=== PATIENT | female | born 1990 | race Caucasian/White ===

== ENCOUNTER 2019-10-24 09:20 | Outpatient (CLI) | payer OTHER, SELFPAY ==
[2019-10-25 14:24] LABS: SARS-CoV-2 RNA PCR Negative
== END 2019-10-24 09:21 | disposition home or self-care (01) ==
LOC: CHSLAB 09:24
PROVIDERS: PCP Nurse Practitioner Family; Visit Provider Nurse Practitioner Family
DX: Z20.828 Contact with and (suspected) exposure to other viral communicable diseases (principal)
CPT/HCPCS: 87635; C9803; U0003

== ENCOUNTER 2020-06-05 22:49 | Emergency (ER) | payer OTHER, SELFPAY ==
--- NOTE | ~2020-06-05 | CT_ITS ---
EXAMINATION: CT lumbar spine wo con DATE: 06/06/2020 00:05 INDICATION: Lower extremity paralysis. TECHNIQUE: Computed tomography (CT) of the lumbar spine was performed without intravenous contrast. A utomated exposure control and iterative reconstruction technique were employed. The dose-length produ ct was 1776.00 mGy-cm. COMPARISON: None FINDINGS: There are changes of cholecystectomy. There is 4 mm retrolisthesis of L5 on S1. There is 7 degrees dextrocurvature of thoracolumbar spine. There is mild chronic anterior wedging of T11 and T12 vertebral bodies. There is moderately decreased disc height at L4-L5 and mildly decreased disc heigh t at L5-S1. The following disc levels are specifically discussed: L1-L2: The disc does not extend beyond the endplate margin. There is mild bilateral facet joint osteo arthritis. There is no neural foraminal stenosis. There is no central canal stenosis. L2-L3: The disc does not extend beyond the endplate margin. There is moderate bilateral facet joint o steoarthritis. There is no neural foraminal stenosis. There is no central canal stenosis. L3-L4: The disc does not extend beyond the endplate margin. There is moderate bilateral facet joint o steoarthritis. There is no neural foraminal stenosis. There is no central canal stenosis. L4-L5: The disc is bulging. There is mild bilateral facet joint osteoarthritis. There is mild bilater al neural foraminal stenosis. There is mild central canal stenosis. L5-S1: The disc is bulging. There is mild bilateral facet joint osteoarthritis. There is moderate raji ateral neural foraminal stenosis. There is mild central canal stenosis. IMPRESSION: 1. Moderate lower lumbar spondylosis. Reviewed, dictated and finalized at location A.
[2020-06-05 23:00] VITALS: BP 137/94; PULSE 85; RESP 20; TEMP 36.1; O2SAT 96
--- NOTE | 2020-06-05 23:00 | ECG_ITS ---
Measurements Intervals [place] Rate: 67 P: 47 RI: 145 QRS: 7 QRSD: 90 T: 15 QT: 389 QTc: 413 Interpretive Statements SINUS RHYTHM DELAYED PRECORDIAL R/S TRANSITION BASELINE ARTIFACT- II, III, AVF BORDERLINE ECG Electronically Signed On 06-06-2020 7:17:33 CDT by Tree Manning D.O.
--- NOTE | 2020-06-05 23:14 | ED.GENADULT ---
HPI - General Adult General Chief complaint: Neuro Symptoms/Deficit Stated complaint: AMB Source: patient Mode of arrival: ambulatory Limitations: no limitations History of Present Illness HPI narrative: Idalia is a 29F with a PMH of obesity, HTN, severe pre-E and herniated disc at L4-L5 that was brought in by EMS for paralysis in her lower extremities. She was working at her desk when she became lightheaded. She was trying to walk to bed when she felt weird (not passing out or vertigo) and sat down. She had 5 episodes of non-bilious non-bloody vomiting then her legs went numb and paralyzed from the knee down at 2200. She has also had back pain since Wednesday. She called EMS when she could not get up. No fevers, chills, trauma, abdominal pain, diarrhea, CP or SOB. Related Data Home Medications Medication Instructions Recorded Confirmed etonogestrel 68 mg subdermal 1 implant SUBDERMAL ONCE 02/14/19 06/10/20 implant Allergies Allergy/AdvReac Type Severity Reaction Status Date / Time Penicillins Allergy Severe Anaphylaxis Verified 06/10/20 07:51 Review of Systems Constitutional: Constitutional: Reports no additional constitutional complaints Eyes: Eyes: Reports no additional eye complaints ENT: Reports system reviewed and no additional complaints, except as documented Cardiovascular: Cardiovascular: Reports no additional cardiovascular complaints Respiratory: Respiratory: Reports no additional respiratory complaints Gastrointestinal: Gastrointestinal: Reports as per HPI Genitourinary: Genitourinary: Reports no additional female genitourinary complaints Musculoskeletal: Musculoskeletal: Reports as per HPI Integumentary/Breasts: Skin/Breast: Reports system reviewed and no additional complaints, except as docu Neurologic: Reports as per HPI Psychiatric: Psychiatric: Reports no additional psychiatric complaints Endocrine: Endocrine: Reports no additional endocrine complaints Hematologic/Lymphatic: Hematologic/Lymphatic: Reports no additional hematologic/lymphatic complaints Allergic/Immunologic: Allergic/Immunologic: Reports no additional allergic/immunologic complaints [facility] Past Medical History Medical History Encounter for tuberculin skin test Foot pain Need for influenza vaccination Obesity, morbid, BMI 50 or higher White coat syndrome with hypertension Surgical History Surgical History Delivery by section H/O partial cystectomy History of cholecystectomy No history of previous surgery Family History Family History Mother Multiple sclerosis Father Heart murmur Social History Social History Smoking status: Never smoker Alcohol intake: current Substance use: never Substance use type: does not use Additional living arrangements comments: with one child Additional occupation/education comments: daycare, runs own business Gender identity (if verbalized by the patient): Female Spiritual care concerns: No Exam Const: General: no acute distress and alert Orientation/consciousness: patient oriented x3 Limitations: No altered mental status HENMT: Head: normal to inspection Other: atraumatic Eyes: Conjunctivae: conjunctivae normal Pupils: Equal, round and reactive pupils present Neck: Neck: normal visual inspection Chest: Chest palpation & inspection: normal inspection of the chest Resp: Effort & Inspection: normal respiratory effort Auscultation: clear to auscultation bilaterally Cardio: Rate: regular rate Rhythm: regular rhythm GI: Inspection: non-distended GI Palp: Yes Soft to palpation, No Tenderness to palpation present (GI) and No Guarding due to palpation present (GI) Back/Spine/Pelvis: Other: No midline tenderness
[2020-06-05 23:47] LABS: Add Urine Microscopic? YES; Appearance Urine Clear (Clear); Bilirubin Urine 1+ (Negative); Blood Urine 1+ (Negative); Color Urine Yellow (Yellow); Glucose Urine UA Negative (Negative); Ketones Urine Negative (Negative); Leukocyte Esterase Ur Trace (Negative); Nitrate Urine Negative (Negative); Protein Urine 1+ (Negative); Specific Grav Ur >= 1.030 (1.010-1.020); pH Urine 5.5 (5.0-8.0)
[2020-06-05 23:49] LABS: Pregnancy On Board Control Positive; Urine Pregnancy Test Negative
[2020-06-05 23:54] LABS: Basophils Absolute Auto 0.03 K/mm3 (0.00-0.10); Basophils Percent Auto 0.2 % (0.0-1.0); Eosinophils Absolute Auto 0.18 K/mm3 (0.02-0.50); Eosinophils Percent Auto 1.4 % (1.0-6.0); Hematocrit 42.9 % (35.0-49.0); Hemoglobin 13.8 g/dL (12.0-15.0); Immature Granulocyte Absolute 0.06 K/mm3 (0.00-0.00); Immature Granulocyte Percent A 0.5 % (0.0-0.0); Lymphocytes Absolute Auto 2.57 K/mm3 (1.10-4.50); Lymphocytes Percent Auto 19.7 % (18.0-42.0); Mean Corpuscular HGB Conc 32.2 g/dL (32.0-36.0); Mean Corpuscular Hemoglobin 28.7 pg (27.0-31.0); Mean Corpuscular Volume 89.2 fL (78.0-102.0); Mean Platelet Volume 10.3 fl (9.2-11.8); Monocytes Absolute Auto 0.41 K/mm3 (0.10-0.90); Monocytes Percent Auto 3.1 % (2.0-11.0); Neutrophils Absolute Auto 9.8 K/mm3 (1.7-7.2); Neutrophils Percent Auto 75.1 % (50.0-70.0); Platelet Count Result 287 K/mm3 (150-420); Red Blood Count 4.81 M/mm3 (4.20-5.40); White Blood Count 13.1 K/mm3 (4.8-10.8)
[2020-06-05 23:57] LABS: Bacteria Urine 4+ /hpf; Calcium Oxalate Crystals Urine Many /hpf; Mucus Urine Heavy /lpf; Squamous Epithelial Cell Urine Many /hpf (Few)
[2020-06-06 00:10] LABS: Alanine Aminotransferase 24 U/L (14-59); Albumin Level 3.6 g/dL (3.4-5.0); Alkaline Phosphatase 81 U/L (46-116); Anion Gap 10 mmol/L (8-16); Aspartate Amino Transferase 15 U/L (15-37); Bilirubin,Total 0.3 mg/dL (0.00-1.00); Blood Urea Nitrogen 15 mg/dL (7-18); Calcium 8.8 mg/dL (8.5-10.1); Carbon Dioxide 26 mmol/L (21-32); Chloride 103 mmol/L (98-108); Estimated CRCL calculation 102 ml/min; Estimated Glomerular Filt Rate 59; Glucose 162 mg/dL (70-99); Osmolality Calculated 292 mOsm/kg (285-295); Potassium 3.6 mmol/L (3.5-5.1); Sodium 139 mmol/L (136-145); Total Protein 7.7 g/dL (6.4-8.2)
--- NOTE | 2020-06-06 01:38 | PC.NURSE ---
RICHARD has contacted [facility] trauma transfer x2 and still awaiting call back from a andi Olivares Pt..
[2020-06-06 02:13] VITALS: BP 132/70; PULSE 80; RESP 20; O2SAT 100
--- NOTE | 2020-06-06 02:42 | PC.NURSE ---
Dr Conn from [facility] accepts for pt transfer to ER for further eval. Awaiting call back for report.
[2020-06-06 02:56] LABS: SARS-CoV-2 Ag Negative (Negative)
[2020-06-06 03:05] VITALS: BP 133/92; PULSE 73; RESP 20; TEMP 36.6; O2SAT 100
--- NOTE | 2020-06-06 03:38 | PC.NURSE ---
Report given to [facility] for transfer.
== END 2020-06-06 03:38 | disposition short-term general hospital (02) ==
PROVIDERS: Emergency Provider Family Medicine; PCP Nurse Practitioner Family
DX: M51.06 Intervertebral disc disorders with myelopathy, lumbar region (principal); Z20.822 Contact with and (suspected) exposure to COVID-19
CPT/HCPCS: 36415; 72131; 80053; 81001; 81025; 85025; 87426; 93005; 99285; C9803

== ENCOUNTER 2020-07-16 08:29 | Outpatient (CLI) | payer SELFPAY | END 2020-07-16 08:30 | disposition home or self-care (01) | PROVIDERS: PCP Nurse Practitioner Family; Visit Provider Nurse Practitioner Family | DX: E66.9 Obesity, unspecified (principal) | CPT/HCPCS: 99199 ==

== ENCOUNTER 2020-07-16 09:37 | Outpatient (RCR) | payer OTHER, SELFPAY ==
--- NOTE | 2020-07-16 10:59 | PTOPEVAL ---
Thank you for referring Idalia Madden to [facility].? The patient is scheduled to be seen for therapy? _3___x/week for 12 visits. Please review, sign, date and return this plan of care JENNIFER. I agree with and certify that the following plan of care is medically necessary. Referring Physician Date Admitting Provider: Attending Provider: Erma Woodward Referring Provider: *PT Outpatient Evaluation Start: 07/16/20 09:58 Freq: Status: Active Protocol: Document 07/16/20 09:58 KAI (Rec: 07/16/20 10:58 [email or web address] [id number]) Therapy Assessment Status Assessment Status Assessment Status Evaluation Evaluation Information Problem Diagnosis low back pain Onset 06/01/20 Subjective Information Pt. reports that she developed Query Text:As Reported By Patient/ back pain in May. she Family reports she underwent MRI which revealed herniated disc at L4-L5. She states that pain goes across the the low back and radiates down into the buttock on both right and left. She reports that pain is worsened with long periods of walking or standing. She reports that she can only stand for about 15 minutes due to pain. She reports she has a 5 year old at home and playing with her daughter on the floor is painful. She states that bending and lifting also will increase her pain. She reports that her goal for therapy is to decrease her pain. Prior Level of Function Activity Level (Last 3 Months) Occupation self employed Hand [employer] Activity of Daily Living Ability Independent Indoor/Home Mobility Independent Community Mobility Independent Stairs Ability Independent Functional Cognition (Planning, Shopping Independent , Taking Medications) Cooking Yes Cleaning Yes Laundry Yes Shopping Yes Driving Yes Pain Assessment Timing of Pain Assessment Timing of Pain Assessment Pre-Treatment Pain Scale Pain Scale Used Numeric (1 - 10) Self Report Pain Assessment Lower Back Reported Pain Level 1
--- NOTE | 2020-10-08 06:46 | PCPTNOTE ---
Mrs. Madden attended a total of 5 treatment sessions from 07/16/20 to 08/02/20. She has failed to return to the clinic and will be discharged from our care. Refer to pt. last Rx note for discharge status. Charly Kamara, MPT
== END 2020-08-02 09:38 | disposition home or self-care (01) ==
LOC: CHSPT 09:37
PROVIDERS: PCP Nurse Practitioner Family
DX: M54.5 Low back pain (principal)
CPT/HCPCS: 97014; 97110; 97161; 97530; G0283

== ENCOUNTER 2021-01-22 12:43 | Outpatient (CLI) | payer OTHER, SELFPAY ==
[2021-01-22 13:02] LABS: Basophils Absolute Auto 0.03 K/mm3 (0.00-0.10); Basophils Percent Auto 0.3 % (0.0-1.0); Eosinophils Absolute Auto 0.25 K/mm3 (0.02-0.50); Eosinophils Percent Auto 2.3 % (1.0-6.0); Hematocrit 39.7 % (35.0-49.0); Hemoglobin 13.9 g/dL (12.0-15.0); Immature Granulocyte Absolute 0.05 K/mm3 (0.00-0.00); Immature Granulocyte Percent A 0.5 % (0.0-0.0); Lymphocytes Absolute Auto 2.75 K/mm3 (1.10-4.50); Lymphocytes Percent Auto 24.8 % (18.0-42.0); Mean Corpuscular Hemoglobin 29.6 pg (27.0-31.0); Mean Corpuscular Volume 84.5 fL (78.0-102.0); Mean Platelet Volume 10.4 fl (9.2-11.8); Monocytes Absolute Auto 0.37 K/mm3 (0.10-0.90); Monocytes Percent Auto 3.3 % (2.0-11.0); Neutrophils Absolute Auto 7.6 K/mm3 (1.7-7.2); Neutrophils Percent Auto 68.8 % (50.0-70.0); Platelet Count Result 275 K/mm3 (150-420); Red Cell Distribution Width 13.2 % (11.6-14.4); White Blood Count 11.1 K/mm3 (4.8-10.8)
[2021-01-22 14:05] LABS: Alanine Aminotransferase 24 U/L (14-59); Albumin Level 3.7 g/dL (3.4-5.0); Alkaline Phosphatase 89 U/L (46-116); Anion Gap 12 mmol/L (8-16); Aspartate Amino Transferase 16 U/L (15-37); Bilirubin,Total 0.4 mg/dL (0.00-1.00); Blood Urea Nitrogen 13 mg/dL (7-18); Calcium 9.2 mg/dL (8.5-10.1); Carbon Dioxide 25 mmol/L (21-32); Chloride 103 mmol/L (98-108); Estimated Glomerular Filt Rate > 60; Glucose 136 mg/dL (70-99); Osmolality Calculated 292 mOsm/kg (285-295); Potassium 4.1 mmol/L (3.5-5.1); Sodium 140 mmol/L (136-145); Thyroid Stimulating Hormone 2.82 uIU/mL (0.36-3.74)
[2021-01-25 23:51] LABS: Vitamin D 25 Hydroxy 12 ng/mL (30-100)
== END 2021-01-22 12:44 | disposition home or self-care (01) ==
LOC: CHSLAB 12:45
PROVIDERS: PCP Nurse Practitioner Family; Visit Provider Nurse Practitioner Family
DX: E66.01 Morbid (severe) obesity due to excess calories (principal); I10 Essential (primary) hypertension
CPT/HCPCS: 36415; 80053; 82306; 84443; 85025

== ENCOUNTER 2021-01-23 13:17 | Outpatient (CLI) | payer OTHER, SELFPAY | END 2021-01-23 13:18 | disposition home or self-care (01) | LOC: CHSLAB 13:19 | PROVIDERS: PCP Nurse Practitioner Family; Visit Provider Nurse Practitioner Family | DX: R19.7 Diarrhea, unspecified (principal); G47.00 Insomnia, unspecified | CPT/HCPCS: 87045; 87177; 87209; 87269; 87427 ==

== ENCOUNTER 2021-02-17 11:53 | Outpatient (CLI) | payer OTHER, SELFPAY ==
[2021-02-17 12:49] LABS: Basophils Absolute Auto 0.02 K/mm3 (0.00-0.10); Basophils Percent Auto 0.2 % (0.0-1.0); Eosinophils Absolute Auto 0.34 K/mm3 (0.02-0.50); Eosinophils Percent Auto 3.3 % (1.0-6.0); Hematocrit 38.8 % (35.0-49.0); Hemoglobin 13.1 g/dL (12.0-15.0); Immature Granulocyte Absolute 0.03 K/mm3 (0.00-0.00); Immature Granulocyte Percent A 0.3 % (0.0-0.0); Lymphocytes Absolute Auto 3.41 K/mm3 (1.10-4.50); Lymphocytes Percent Auto 33.5 % (18.0-42.0); Mean Corpuscular HGB Conc 33.8 g/dL (32.0-36.0); Mean Corpuscular Hemoglobin 29.6 pg (27.0-31.0); Mean Corpuscular Volume 87.6 fL (78.0-102.0); Mean Platelet Volume 10.9 fl (9.2-11.8); Monocytes Absolute Auto 0.54 K/mm3 (0.10-0.90); Monocytes Percent Auto 5.3 % (2.0-11.0); Neutrophils Absolute Auto 5.8 K/mm3 (1.7-7.2); Neutrophils Percent Auto 57.4 % (50.0-70.0); Platelet Count Result 290 K/mm3 (150-420); Red Blood Count 4.43 M/mm3 (4.20-5.40); Red Cell Distribution Width 12.9 % (11.6-14.4); White Blood Count 10.2 K/mm3 (4.8-10.8)
== END 2021-02-17 11:54 | disposition home or self-care (01) ==
LOC: CHSLAB 11:56
PROVIDERS: PCP Nurse Practitioner Family; Visit Provider Nurse Practitioner Family
DX: D72.829 Elevated white blood cell count, unspecified (principal)
CPT/HCPCS: 36415; 85025

== ENCOUNTER 2021-05-14 07:04 | Outpatient (CLI) | payer OTHER, SELFPAY ==
--- NOTE | ~2021-05-14 | US_ITS ---
EXAMINATION: US pelvic complete w TV DATE: 05/14/2021 07:57 INDICATION: Pelvic pain. TECHNIQUE: Multiple transabdominal and transvaginal sonographic images of the pelvis were obtained. COMPARISON: None. FINDINGS: TRANSABDOMINAL ULTRASOUND: The uterus measures 9.6 x 3.2 x 3.3 cm. There is no free fluid in the pelvis. TRANSVAGINAL ULTRASOUND: The endometrial complex measures 4 mm in thickness. The right ovary measures 3.0 x 1.9 x 1.5 cm. The left ovary measures 2.3 x 1.6 x 1.8 cm. There is normal vascular flow in the ovaries. IMPRESSION: 1. Normal pelvis. Reviewed, dictated and finalized at location A. IMPRESSION: 1. Normal pelvis.
== END 2021-05-14 07:05 | disposition home or self-care (01) ==
LOC: CHSIMG 07:05
PROVIDERS: PCP Nurse Practitioner Family; Visit Provider Nurse Practitioner
DX: R10.2 Pelvic and perineal pain (principal)
CPT/HCPCS: 76830; 76856

== ENCOUNTER 2022-04-03 14:09 | Outpatient (CLI) | payer OTHER, SELFPAY ==
--- NOTE | ~2022-04-03 | XR_ITS ---
XR cervical spine 4-5V 04/03/2022 14:40 Indication: Neck pain Procedure: 4 views cervical spine Comparison: No prior studies for comparison. Findings: Straightening of cervical lordosis, likely due to muscle spasm. Vertebral body heights are maintained. No fracture or traumatic malalignment. No prevertebral soft tissue swelling. Odontoid pro cess is normal. Lung apices are normal. Impression: 1: No significant abnormality of the cervical spine. Reviewed, dictated and finalized at location B. NICAL ADMINISTRATIVE ASSISTANT Impression: 1: No significant abnormality of the cervical spine.
[2022-04-03 14:36] LABS: Hematocrit 38.5 % (35.0-49.0); Hemoglobin 13.1 g/dL (12.0-15.0); Mean Corpuscular Volume 85.4 fL (78.0-102.0); Mean Platelet Volume 10.1 fl (9.2-11.8); Platelet Count Result 310 K/mm3 (150-420); Red Blood Count 4.51 M/mm3 (4.20-5.40); White Blood Count 11.5 K/mm3 (4.8-10.8)
[2022-04-03 15:16] LABS: Alanine Aminotransferase 21 U/L (14-59); Albumin Level 3.6 g/dL (3.4-5.0); Alkaline Phosphatase 86 U/L (46-116); Anion Gap 12 mmol/L (8-16); Aspartate Amino Transferase 26 U/L (15-37); Bilirubin,Total 0.3 mg/dL (0.00-1.00); Blood Urea Nitrogen 13 mg/dL (7-18); Calcium 9.3 mg/dL (8.5-10.1); Carbon Dioxide 26 mmol/L (21-32); Chloride 102 mmol/L (98-108); Cholesterol 180 mg/dL (0-200); Estimated Glomerular Filt Rate > 60; Glucose 107 mg/dL (70-99); HDL Direct 37 mg/dL (40-60); LDL Cholesterol Calculated 109 mg/dL (<130); Osmolality Calculated 290 mOsm/kg (285-295); Potassium 3.8 mmol/L (3.5-5.1); Sodium 140 mmol/L (136-145); Thyroid Stimulating Hormone 2.84 uIU/mL (0.36-3.74); Total Protein 7.9 g/dL (6.4-8.2); Triglycerides 171 mg/dL (0-150)
== END 2022-04-03 14:10 | disposition home or self-care (01) ==
LOC: CHSLAB 14:11
PROVIDERS: PCP Nurse Practitioner Family; Visit Provider Nurse Practitioner Family
DX: R73.03 Prediabetes (principal); M54.2 Cervicalgia; E66.01 Morbid (severe) obesity due to excess calories
CPT/HCPCS: 36415; 72050; 80053; 80061; 84443; 85027

== ENCOUNTER 2022-04-13 07:58 | Outpatient (RCR) | payer OTHER, SELFPAY ==
--- NOTE | 2022-04-13 09:05 | PTOPEVAL1 ---
Assessment and note entered by Karime Carrasco DPT Evaluation Information Assessment Status Evaluation Diagnosis cervicalgia Onset Subjective Information Patient reports she has had neck pain for the last month. She reports the only instance she can remember when pain started is when she was carrying a duffle bag across her body. Patient has difficulty sleeping and looking over her shoulder to drive. 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 She denies and radiating pain. x-rays were negative. Reported Pain Level Pain Score 3: Self Report Assessment PT Clinical Summary Patient is a 31 year old female who presents to PT with cervical pain. Patient demonstrates limited L cervical rotation with pain and hypomobility of C2-4 cervical vertebra impairing her ability to look over her L shoulder when driving and abiltiy to sleep without disturbance. She would benefit from skilled PT to address impairments and return to PLOF. Plan of Care Interventions Electrical Stimulation,Hot Pack/Cold Pack,Manual Therapy,Mechanical Traction,Neuro Re-education, Patient/Caregiver Educati,Therapeutic Activities, Therapeutic Exercise,Self-Care/Home Management PT Services Indicated Yes Treatment Frequency and 2x weekly for 12 visits Duration These treatments will address the objective and functional deficits as defined above. The patient will be advanced safely and appropriately in order for the patient to progress towards his/her prior level of function. Additional exercises will be introduced and as well as a comprehensive home exercise program upon discharge, if needed, ?to ensure carryover of functional gains achieved in the clinic. This treatment plan has been reviewed and agreement upon by the patient.
--- NOTE | 2022-06-02 11:18 | PTOPDC ---
Assessment and note entered by Karime Carrasco DPT Evaluation Information Assessment Status Re-evaluation Diagnosis cervicalgia Onset Subjective Information Patient reports she has been able to sleep with no increase in pain. She also reports she is able to check her blind spot when driving with no inrease in pain. She has been getting head aches but is contributing that to BP issues. Reported Pain Level Pain Score 0: Self Report Assessment PT Clinical Summary Patient made significant progress in skilled PT and met all goals. She has improved cervical ROM, improved UE strength and reports ability to sleep and drive with no increase in pain. Patient reports independence with HEP and will be discharged to independent HEP at this time. Plan of Care PT Services Indicated No
== END 2022-06-02 14:44 | disposition home or self-care (01) ==
LOC: CHSPT 07:58
PROVIDERS: Visit Provider Nurse Practitioner Family
DX: M54.2 Cervicalgia (principal)
CPT/HCPCS: 97014; 97110; 97140; 97161; G0283

== ENCOUNTER 2022-05-26 11:53 | Outpatient (CLI) | payer OTHER, SELFPAY ==
[2022-05-26 12:12] LABS: Appearance Urine Clear (Clear); Bilirubin Urine Negative (Negative); Blood Urine 1+ (Negative); Color Urine Yellow (Yellow); Glucose Urine UA Negative (Negative); Ketones Urine Negative (Negative); Leukocyte Esterase Ur Negative (Negative); Nitrate Urine Negative (Negative); Protein Urine Negative (Negative); Specific Grav Ur >= 1.030 (1.010-1.020); Urobilinogen Urine 0.2 mg/dL (0.2-1.0)
[2022-05-26 12:19] LABS: Add Urine Microscopic? YES
[2022-05-26 12:20] LABS: Bacteria Urine 1+ /hpf; Mucus Urine Few /lpf; Squamous Epithelial Cell Urine Few /hpf (Few); WBC Urine None seen /hpf (0-3)
[2022-05-28 15:50] LABS: TB Skin Test Erythema 0 mm; TB Skin Test Induration 0 mm (0-10); TB Skin Test Interpretation Negative (Negative); TB Skin Test Site Left Arm
== END 2022-05-26 11:54 | disposition home or self-care (01) ==
LOC: CHSLAB 11:55
PROVIDERS: PCP Nurse Practitioner Family; Visit Provider Nurse Practitioner Family
DX: R39.9 Unspecified symptoms and signs involving the genitourinary system (principal); Z02.1 Encounter for pre-employment examination
CPT/HCPCS: 36415; 81001; 86580

== ENCOUNTER 2022-07-03 07:13 | Outpatient (CLI) | payer OTHER, SELFPAY ==
[2022-07-03 07:44] LABS: Hemoglobin A1C 6.4 % (<5.7)
[2022-07-03 08:24] LABS: Cholesterol 178 mg/dL (0-200); HDL Direct 39 mg/dL (40-60); LDL Cholesterol Calculated 103 mg/dL (<130); Triglycerides 180 mg/dL (0-150)
[2022-07-08 20:06] LABS: Vitamin D 25 Hydroxy 12 ng/mL (30-100)
== END 2022-07-03 07:14 | disposition home or self-care (01) ==
LOC: CHSLAB 07:15
PROVIDERS: PCP Nurse Practitioner Family; Visit Provider Nurse Practitioner Family
DX: E55.9 Vitamin D deficiency, unspecified (principal); E66.01 Morbid (severe) obesity due to excess calories; R73.03 Prediabetes
CPT/HCPCS: 36415; 80061; 82306; 83036

== ENCOUNTER 2022-09-03 09:44 | Outpatient (CLI) | payer OTHER, SELFPAY ==
[2022-09-07 19:26] LABS: Vitamin D 25 Hydroxy 20 ng/mL (30-100)
== END 2022-09-03 09:45 | disposition home or self-care (01) ==
LOC: CHSLAB 09:46
PROVIDERS: PCP Nurse Practitioner Family; Visit Provider Nurse Practitioner Family
DX: E55.9 Vitamin D deficiency, unspecified (principal)
CPT/HCPCS: 36415; 82306

== ENCOUNTER 2022-09-15 10:06 | Outpatient (CLI) | payer OTHER, SELFPAY ==
[2022-09-15 10:25] LABS: Creatinine Urine 258.81 mg/dL (40-278); MALB Creatinine Ratio 38.4 mg/g (0-30); Microalbumin Urine Random 99.6 mg/L
[2022-09-15 10:45] LABS: Hemoglobin A1C 5.7 % (<5.7)
[2022-09-15 10:48] LABS: Albumin Level 3.6 g/dL (3.4-5.0); Anion Gap 12 mmol/L (8-16); Blood Urea Nitrogen 11 mg/dL (7-18); Calcium 9.3 mg/dL (8.5-10.1); Carbon Dioxide 26 mmol/L (21-32); Chloride 103 mmol/L (98-108); Estimated Glomerular Filt Rate > 60; Glucose 137 mg/dL (70-99); Osmolality Calculated 293 mOsm/kg (285-295); Phosphorus 3.7 mg/dL (2.6-4.7); Potassium 4.1 mmol/L (3.5-5.1); Sodium 141 mmol/L (136-145)
== END 2022-09-15 10:07 | disposition home or self-care (01) ==
LOC: CHSLAB 10:08
PROVIDERS: PCP Nurse Practitioner Family; Visit Provider Nurse Practitioner Family
DX: E11.9 Type 2 diabetes mellitus without complications (principal); R35.0 Frequency of micturition
CPT/HCPCS: 36415; 80069; 82043; 83036

== ENCOUNTER 2022-09-18 12:10 | Outpatient (CLI) | payer OTHER, SELFPAY ==
[2022-09-18 12:48] LABS: Appearance Urine Clear (Clear); Bilirubin Urine Negative (Negative); Blood Urine Negative (Negative); Color Urine Light Yellow (Yellow); Glucose Urine UA Negative (Negative); Ketones Urine Negative (Negative); Leukocyte Esterase Ur Negative (Negative); Nitrate Urine Negative (Negative); Protein Urine Negative (Negative); Specific Grav Ur >= 1.030 (1.010-1.020); Urobilinogen Urine 0.2 mg/dL (0.2-1.0)
[2022-09-18 12:50] LABS: Add Urine Microscopic? NO
== END 2022-09-18 12:11 | disposition home or self-care (01) ==
PROVIDERS: PCP Nurse Practitioner Family; Visit Provider Nurse Practitioner Family
DX: R35.0 Frequency of micturition (principal); R82.90 Unspecified abnormal findings in urine
CPT/HCPCS: 81003; 87086; 87088

== ENCOUNTER 2023-01-05 15:32 | Outpatient (CLI) | payer OTHER, SELFPAY ==
--- NOTE | ~2023-01-05 | XR_ITS ---
XR hip BI wo pelvis 01/05/2023 16:04 Indication: Hip pain for 10 days Procedure: 2 views each hip Comparison: 07/27/2014 Findings: Stable mild bilateral symmetric osteoarthritis of the hips. Pelvic rings are intact. No fra cture or traumatic malalignment. Sacral foramen are symmetric. Impression: 1: Mild bilateral symmetric osteoarthritis of the hips. Reviewed, dictated and finalized at location L. ROLS DESIGN ENGINEER Impression: 1: Mild bilateral symmetric osteoarthritis of the hips.
[2023-01-05 16:25] LABS: Alanine Aminotransferase 39 U/L (14-59); Albumin Level 3.4 g/dL (3.4-5.0); Alkaline Phosphatase 73 U/L (46-116); Anion Gap 5 mmol/L (8-16); Aspartate Amino Transferase 25 U/L (15-37); Bilirubin,Total 0.5 mg/dL (0.00-1.00); Blood Urea Nitrogen 9 mg/dL (7-18); Calcium 9.3 mg/dL (8.5-10.1); Carbon Dioxide 33 mmol/L (21-32); Chloride 102 mmol/L (98-108); Cholesterol 160 mg/dL (0-200); Estimated Glomerular Filt Rate > 60; Glucose 86 mg/dL (70-99); HDL Direct 35 mg/dL (40-60); LDL Cholesterol Calculated 100 mg/dL (<130); Osmolality Calculated 287 mOsm/kg (285-295); Sodium 140 mmol/L (136-145); Total Protein 7.8 g/dL (6.4-8.2); Triglycerides 123 mg/dL (0-150)
[2023-01-05 16:28] LABS: Hemoglobin A1C 5.7 % (<5.7)
== END 2023-01-05 15:33 | disposition home or self-care (01) ==
PROVIDERS: PCP Nurse Practitioner Family; Visit Provider Nurse Practitioner Family
DX: E66.01 Morbid (severe) obesity due to excess calories (principal); E11.9 Type 2 diabetes mellitus without complications; M25.552 Pain in left hip; M25.551 Pain in right hip; M16.0 Bilateral primary osteoarthritis of hip
CPT/HCPCS: 36415; 73521; 80053; 80061; 83036

== ENCOUNTER 2023-05-04 11:32 | Outpatient (CLI) | payer OTHER, SELFPAY ==
--- NOTE | 2023-05-04 12:20 | ECG_ITS ---
Measurements Intervals [place] Rate: 58 P: 69 CO: 153 QRS: 64 QRSD: 92 T: 60 QT: 423 QTc: 419 Interpretive Statements SINUS BRADYCARDIA DELAYED PRECORDIAL R/S TRANSITION BORDERLINE ECG COMPARED TO ECG 06/05/2020 23:09:06 SINUS BRADYCARDIA NOW PRESENT Electronically Signed On 05-04-2023 16:10:45 CDT by Tree Manning D.O.
[2023-05-04 12:24] LABS: Basophils Absolute Auto 0.02 K/mm3 (0.00-0.10); Basophils Percent Auto 0.2 % (0.0-1.0); Eosinophils Absolute Auto 0.15 K/mm3 (0.02-0.50); Eosinophils Percent Auto 1.6 % (1.0-6.0); Hematocrit 40.9 % (35.0-49.0); Hemoglobin 13.7 g/dL (12.0-15.0); Immature Granulocyte Absolute 0.04 K/mm3 (0.00-0.00); Immature Granulocyte Percent A 0.4 % (0.0-0.0); Lymphocytes Absolute Auto 2.84 K/mm3 (1.10-4.50); Lymphocytes Percent Auto 30.8 % (18.0-42.0); Mean Corpuscular HGB Conc 33.5 g/dL (32-36); Mean Corpuscular Hemoglobin 28.8 pg (27.0-31.0); Mean Corpuscular Volume 85.9 fL (78.0-102.0); Mean Platelet Volume 10.2 fl (9.2-11.8); Monocytes Absolute Auto 0.32 K/mm3 (0.10-0.90); Monocytes Percent Auto 3.5 % (2.0-11.0); Neutrophils Absolute Auto 5.86 K/mm3 (1.70-7.20); Neutrophils Percent Auto 63.5 % (50.0-70.0); Platelet Count Result 260 K/mm3 (150-420); Red Blood Count 4.76 M/mm3 (4.20-5.40); Red Cell Distribution Width 13.1 % (11.6-14.4); White Blood Count 9.2 K/mm3 (4.8-10.8)
[2023-05-04 12:44] LABS: Alanine Aminotransferase 21 U/L (14-59); Albumin Level 3.5 g/dL (3.4-5.0); Alkaline Phosphatase 71 U/L (46-116); Anion Gap 11 mmol/L (4-12); Aspartate Amino Transferase 16 U/L (15-37); Bilirubin,Total 0.4 mg/dL (0.00-1.00); Blood Urea Nitrogen 6 mg/dL (7-18); Calcium 9.4 mg/dL (8.5-10.1); Carbon Dioxide 28 mmol/L (21-32); Chloride 101 mmol/L (98-108); Cholesterol 181 mg/dL (0-200); Estimated Glomerular Filt Rate > 60; Glucose 87 mg/dL (70-99); HDL Direct 47 mg/dL (40-60); Hemoglobin A1C 5.1 % (<5.7); LDL Cholesterol Calculated 108 mg/dL (<130); Osmolality Calculated 286 mOsm/kg (285-295); Potassium 3.5 mmol/L (3.5-5.1); Sodium 140 mmol/L (136-145); Total Protein 8.5 g/dL (6.4-8.2); Triglycerides 130 mg/dL (0-150)
[2023-05-06 22:12] LABS: Vitamin D 25 Hydroxy 19 ng/mL (30-100)
== END 2023-05-04 11:33 | disposition home or self-care (01) ==
LOC: CHSLAB 11:35
PROVIDERS: PCP Nurse Practitioner Family; Visit Provider Nurse Practitioner Family
DX: Z00.00 Encounter for general adult medical examination without abnormal findings (principal); E55.9 Vitamin D deficiency, unspecified; E11.9 Type 2 diabetes mellitus without complications; R07.89 Other chest pain; R00.1 Bradycardia, unspecified
CPT/HCPCS: 36415; 80053; 80061; 82306; 83036; 84484; 85025; 93005

== ENCOUNTER 2023-07-08 12:59 | Outpatient (CLI) | payer OTHER, SELFPAY ==
[2023-07-08 13:52] LABS: Alanine Aminotransferase 23 U/L (14-59); Albumin Level 3.3 g/dL (3.4-5.0); Alkaline Phosphatase 70 U/L (46-116); Anion Gap 8 mmol/L (4-12); Aspartate Amino Transferase 28 U/L (15-37); Bilirubin,Total 0.5 mg/dL (0.00-1.00); Blood Urea Nitrogen 11 mg/dL (7-18); Calcium 8.7 mg/dL (8.5-10.1); Carbon Dioxide 30 mmol/L (21-32); Chloride 102 mmol/L (98-108); Estimated Glomerular Filt Rate > 60; Glucose 96 mg/dL (70-99); Osmolality Calculated 289 mOsm/kg (285-295); Sodium 140 mmol/L (136-145); Total Protein 7.6 g/dL (6.4-8.2)
[2023-07-08 13:53] LABS: Potassium 4.7 mmol/L (3.5-5.1)
[2023-07-10 03:04] LABS: Vitamin D 25 Hydroxy 30 ng/mL (30-100)
== END 2023-07-08 13:00 | disposition home or self-care (01) ==
LOC: CHSLAB 13:00
PROVIDERS: PCP Nurse Practitioner Family; Visit Provider Nurse Practitioner Family
DX: E55.9 Vitamin D deficiency, unspecified (principal); I10 Essential (primary) hypertension
CPT/HCPCS: 36415; 80053; 82306

== ENCOUNTER 2023-09-02 13:45 | Outpatient (CLI) | payer OTHER, SELFPAY ==
[2023-09-02 14:02] LABS: Basophils Absolute Auto 0.04 K/mm3 (0.00-0.10); Basophils Percent Auto 0.4 % (0.0-1.0); Eosinophils Absolute Auto 0.17 K/mm3 (0.02-0.50); Eosinophils Percent Auto 1.9 % (1.0-6.0); Hematocrit 36.6 % (35.0-49.0); Hemoglobin 12.7 g/dL (12.0-15.0); Immature Granulocyte Absolute 0.03 K/mm3 (0.00-0.00); Immature Granulocyte Percent A 0.3 % (0.0-0.0); Lymphocytes Absolute Auto 3.29 K/mm3 (1.10-4.50); Lymphocytes Percent Auto 35.9 % (18.0-42.0); Mean Corpuscular HGB Conc 34.7 g/dL (32-36); Mean Corpuscular Hemoglobin 29.7 pg (27.0-31.0); Mean Corpuscular Volume 85.5 fL (78.0-102.0); Mean Platelet Volume 10.5 fl (9.2-11.8); Monocytes Absolute Auto 0.36 K/mm3 (0.10-0.90); Monocytes Percent Auto 3.9 % (2.0-11.0); Neutrophils Absolute Auto 5.27 K/mm3 (1.70-7.20); Neutrophils Percent Auto 57.6 % (50.0-70.0); Platelet Count Result 279 K/mm3 (150-420); Red Blood Count 4.28 M/mm3 (4.20-5.40); Red Cell Distribution Width 12.4 % (11.6-14.4); White Blood Count 9.2 K/mm3 (4.8-10.8)
[2023-09-02 14:38] LABS: Hemoglobin A1C 5.6 % (<5.7)
[2023-09-02 14:52] LABS: Alanine Aminotransferase 33 U/L (14-59); Albumin Level 3.5 g/dL (3.4-5.0); Alkaline Phosphatase 91 U/L (46-116); Anion Gap 8 mmol/L (4-12); Aspartate Amino Transferase 14 U/L (15-37); Bilirubin,Total 0.6 mg/dL (0.00-1.00); Blood Urea Nitrogen 8 mg/dL (7-18); Calcium 8.8 mg/dL (8.5-10.1); Carbon Dioxide 28 mmol/L (21-32); Chloride 104 mmol/L (98-108); Cholesterol 145 mg/dL (0-200); Estimated Glomerular Filt Rate > 60; Glucose 97 mg/dL (70-99); HDL Direct 42 mg/dL (40-60); LDL Cholesterol Calculated 77 mg/dL (<130); Osmolality Calculated 288 mOsm/kg (285-295); Sodium 140 mmol/L (136-145); Thyroid Stimulating Hormone 1.72 uIU/mL (0.36-3.74); Total Protein 7.2 g/dL (6.4-8.2); Triglycerides 130 mg/dL (0-150)
== END 2023-09-02 13:46 | disposition home or self-care (01) ==
LOC: CHSLAB 13:46
PROVIDERS: PCP Nurse Practitioner Family; Visit Provider Nurse Practitioner Family
DX: Z00.00 Encounter for general adult medical examination without abnormal findings (principal)
CPT/HCPCS: 36415; 80053; 80061; 83036; 84443; 85025

== ENCOUNTER 2023-12-11 22:47 | Emergency (ER) | payer OTHER, SELFPAY ==
--- NOTE | ~2023-12-11 | XR_ITS ---
EXAMINATION: XR ankle RT min 3V, XR foot RT min 3V DATE: 12/11/2023 23:07 INDICATION: Lateral right foot and ankle pain post fall TECHNIQUE: 1. Anteroposterior, mortise, additional oblique and lateral view of the right ankle were obtained. 2. Dorsoplantar, two oblique and lateral views of the right foot were obtained. COMPARISON: None. FINDINGS: Alignment of the right foot and ankle is normal. No fracture. Mild osteoarthritis at the second and t hird tarsal metatarsal joints. Remaining joint spaces are relatively preserved. Small Achilles and pl mary ann calcaneal spurs. There is soft tissue swelling about the lateral malleolus and along the dorsal mid and hindfoot. No evident ankle joint effusion. IMPRESSION: 1. No acute osseous abnormality. Reviewed, dictated and finalized at location A. ICULUM ASSISTANT IMPRESSION: 1. No acute osseous abnormality.
[2023-12-11 22:47] VITALS: BP 167/85; PULSE 89; RESP 18; TEMP 36.8; O2SAT 98
[2023-12-11 22:51] VITALS: BP 167/95; PULSE 88; RESP 18; O2SAT 98
[2023-12-11] MEDS: IBUPROFEN 400 MG TABLET 800 MG PO (23:07)
--- NOTE | 2023-12-11 23:13 | ED_ITS ---
HPI - Extremity Injury (Lower) General Chief Complaint: Extremity Injury, Lower Stated Complaint: Lower extremity pain Time Seen by Provider: 12/11/23 22:55 Source: patient and family Mode of arrival: EMS Limitations: no limitations History of Present Illness HPI Narrative: this is a 33-year-old female history of diabetes and hypertension missed a step earlier this evening and twisted her foot and ankle right causing some bruising and pain with some swelling with decreased range of motion secondary to pain and swelling. complaint: ankle injury and foot injury Onset (ago): hour(s) Injury: Right: ankle ( ankle bruising and tenderness palpation and movement) and foot Type of Injury: eversion Place: home Severity: moderate Severity scale (1-10): 5 Relieving factors: cold therapy Related Data Allergies Allergy/AdvReac Type Severity Reaction Status Date / Time Penicillins Allergy Severe Anaphylaxis Verified 10/04/23 09:36 Review of Systems Review of Systems: All systems reviewed & are unremarkable except as noted in HPI and below PMFSH Past Medical History Medical History Encounter for tuberculin skin test Foot pain Leukocytosis Need for influenza vaccination Obesity, morbid, BMI 50 or higher White coat syndrome with hypertension Surgical History Surgical History Delivery by section History of cholecystectomy No history of previous surgery Family History Family History Mother Multiple sclerosis Father Heart murmur Social History Social History Smoking status: Never smoker Alcohol intake: current Substance use: never Substance use type: does not use Living arrangements: with family Additional living arrangements comments: with one child Occupation/Education: occupation Additional occupation/education comments: daycare, runs own business Gender identity (if verbalized by the patient): Female Spiritual care concerns: No Exam Const: General: healthy appearing, no acute distress and alert Nutritional Appearance: well nourished Orientation/consciousness: patient oriented x3 Limitations: no limitations Resp: Effort & Inspection: normal respiratory effort Auscultation: clear to auscultation bilaterally Cardio: Rate: regular rate Rhythm: regular rhythm Skin: Other: Abrasions and bruising right foot and ankle Neuro: General: patient oriented x3 and moves all extremities Extrem: Other: tenderness in the right ankle and bruising Course Course Emergency Course: x-rays performed and do not show any obvious fractures patient received a dose of p.o. Motrin and postop shoe to stabilize the right foot ankle applied. Vital Signs Vital signs: Vital Signs Temperature 36.8 C 12/11/23 22:47 Pulse Rate 89 12/11/23 22:47 Respiratory Rate 18 12/11/23 22:47 Blood Pressure 167/85 H 12/11/23 22:47 Pulse Oximetry 98 12/11/23 22:47 Oxygen Delivery Room Air 12/11/23 22:47 Temperature 36.8 C 12/11/23 22:47 Pulse Rate 88 12/11/23 22:51 Respiratory Rate 18 12/11/23 22:51 Blood Pressure 167/95 H 12/11/23 22:51 Pulse Oximetry 98 12/11/23 22:51 Oxygen Delivery Room Air 12/11/23 22:51 Critical Care Time Critical Care Time Critical Care Time: No Discharge Plan Discharge Clinical Impression: Ankle sprain Qualifiers: Encounter type: initial encounter Involved ligament of ankle: unspecified ligament Laterality: right Qualified Code(s): S93.401A - Sprain of unspecified ligament of right ankle, initial encounter Patient Disposition: Home, Self-Care Condition: Stable Instructions: Antibiotic Form, Ankle Sprain (ED) Additional Instructions: advised take Tylenol or Motrin as needed continue rest and elevation and ice applied to affected ankle and follow with primary if symptoms persist or worsen. Prescriptions: No Action calcium carbonate 600 mg calcium (1,500 mg) tablet See Rx Instructions .ROUTE .COMPLEX Qty: 56 0RF Dose Instruction: TAKE 1 TABLET BY MOUTH DAILY FOR 8 WEEKS Rx Instructions: TAKE 1 TABLET BY MOUTH DAILY FOR 8 WEEKS oxybutynin chloride 5 mg tablet 5 mg PO BID Qty: 60 2RF hydrochlorothiazide 12.5 mg capsule 12.5 mg PO BID 30 Days Qty: 60 1RF amlodipine 5 mg tablet 5 mg PO DAILY Qty: 30 1RF trazodone 50 mg tablet See Rx Instructions .ROUTE .COMPLEX Qty: 90 1RF Dose Instruction: TAKE 1 TABLET BY MOUTH AT BEDTIME NEEDED FOR INSOMNIA Rx Instructions: TAKE 1 TABLET BY MOUTH AT BEDTIME NEEDED FOR INSOMNIA Jardiance 25 mg tablet See Rx Instructions .ROUTE .COMPLEX Qty: 90 1RF Dose Instruction: TAKE 1 TABLET BY MOUTH EVERY MORNING Rx Instructions: TAKE 1 TABLET BY MOUTH EVERY MORNING meloxicam 7.5 mg tablet See Rx Instructions .ROUTE .COMPLEX Qty: 30 1RF Dose Instruction: TAKE 1 TABLET BY MOUTH DAILY NEEDED FOR HIP PAIN Rx Instructions: TAKE 1 TABLET BY MOUTH DAILY NEEDED FOR HIP PAIN ergocalciferol (vitamin D2) 1,250 mcg (50,000 unit) capsule See Rx Instructions .ROUTE .COMPLEX Qty: 8 0RF Dose Instruction: TAKE 1 CAPSULE BY MOUTH WEEKLY FOR 8 WEEKS PLEASE FOLLOW UP FOR REPEAT LAB DRAW ONCE COMPLETE Rx Instructions: TAKE 1 CAPSULE BY MOUTH WEEKLY FOR 8 WEEKS PLEASE FOLLOW UP FOR REPEAT LAB DRAW ONCE COMPLETE losartan 100 mg tablet See Rx Instructions .ROUTE .COMPLEX Qty: 30 2RF Dose Instruction: 100 MG ORALLY DAILY Rx Instructions: 100 MG ORALLY DAILY Follow-up/Referrals: Delma Izaguirre NURSING PROGRAM COORDINATOR [Advanced Practice Nurse] - Time of Disposition: 23:17
--- NOTE | 2023-12-11 23:13 | PC.NURSE ---
ice bag applied
[2023-12-11 23:24] VITALS: BP 136/86; PULSE 85; RESP 18; O2SAT 98
== END 2023-12-11 23:24 | disposition home or self-care (01) ==
PROVIDERS: Emergency Provider Emergency Medicine; PCP Nurse Practitioner Family
DX: S93.401A Sprain of unspecified ligament of right ankle, initial encounter (principal); E11.9 Type 2 diabetes mellitus without complications; I10 Essential (primary) hypertension; X50.0XXA Overexertion from strenuous movement or load, initial encounter
CPT/HCPCS: 73610; 73630; 99283; A9270

== ENCOUNTER 2024-11-06 17:26 | Emergency (ER) | payer OTHER, SELFPAY ==
--- NOTE | ~2024-11-06 | XR_ITS ---
EXAMINATION: XR knee RT min 4V, 11/06/2024 17:45 CDT HISTORY: injury COMPARISON: No comparisons available. Findings: No acute fracture or malalignment. No significant degenerative changes. Soft tissues unremarkable. Impression: No acute fracture or malalignment. Reviewed, dictated and finalized at location P. Impression: No acute fracture or malalignment.
[2024-11-06 17:28] VITALS: BP 154/128; PULSE 87; RESP 16; TEMP 37; O2SAT 96
--- NOTE | 2024-11-06 17:30 | ED_ITS ---
HPI - Extremity Injury (Lower) General Chief Complaint: Extremity Injury, Lower Stated Complaint: rt. knee pain from falling Time Seen by Provider: 11/06/24 17:30 Source: patient Mode of arrival: wheelchair Limitations: no limitations History of Present Illness HPI Narrative: Patient is a 34-year-old female with a right knee injury at home prior to arrival. She slipped on some dog urine at home and sustained a right knee injury. This was a ground level fall. No other injuries. MD complaint: knee injury (Right) Onset (ago): minute(s) (30) Type of Injury: blunt Place: home Severity: moderate Severity scale (1-10): 4 Relieving factors: immobilization Exacerbating factors: weight bearing, movement and palpation Context: fall and direct blow Associated symptoms: snap/pop sensation and swelling Other symptoms: none Treatments prior to arrival: cold therapy Related Data Allergies Allergy/AdvReac Type Severity Reaction Status Date / Time Penicillins Allergy Severe Anaphylaxis Verified 11/06/24 17:31 Review of Systems Review of Systems: All systems reviewed & are unremarkable except as noted in HPI and below Constitutional: Constitutional: Reports no additional constitutional complaints Eyes: Eyes: Reports no additional eye complaints ENT: Reports system reviewed and no additional complaints, except as documented Cardiovascular: Cardiovascular: Reports no additional cardiovascular complaints Respiratory: Respiratory: Reports no additional respiratory complaints Gastrointestinal: Gastrointestinal: Reports no additional gastrointestinal complaints Genitourinary: Genitourinary: Reports no additional female genitourinary complaints Musculoskeletal: Musculoskeletal: Reports no additional musculoskeletal complaints Integumentary/Breasts: Skin/Breast: Reports system reviewed and no additional complaints, except as docu Neurologic: Reports system reviewed and no additional complaints, except as documented Psychiatric: Psychiatric: Reports no additional psychiatric complaints Endocrine: Endocrine: Reports no additional endocrine complaints Hematologic/Lymphatic: Hematologic/Lymphatic: Reports no additional hemato logic/lymphatic complaints Allergic/Immunologic: Allergic/Immunologic: Reports no additional allergic/immunologic complaints PMFSH Past Medical History Medical History Leukocytosis Encounter for tuberculin skin test Obesity, morbid, BMI 50 or higher Need for influenza vaccination White coat syndrome with hypertension Foot pain Surgical History Surgical History Delivery by section History of cholecystectomy No history of previous surgery Family History Family History Mother Multiple sclerosis Father Heart murmur Social History Social History Smoking status: Never smoker Alcohol intake: current Substance use: never Substance use type: does not use Current Housing: Decline to Answer Concerned About Future Housing: Decline to Answer Difficulty Paying Gas/Electric Bills: Decline to Answer Difficulty Paying for Meds: Decline to Answer Currently Unemployed: Decline to Answer Education: Decline to Answer Difficulty w/ Childcare or Family Care: Decline to Answer Living arrangements: with family Additional living arrangements comments: with one child Occupation/Education: occupation Additional occupation/education comments: daycare, 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 Gender identity (if verbalized by the patient): Female Spiritual care concerns: No Exam Const: General: healthy appearing Nutritional Appearance: well nourished and obese Orientation/consciousness: patient oriented x3 HENMT: Head: normal to inspection Ears: external ears normal Face/Nose/Sinus: Normal external nose present Eyes: Conjunctivae: conjunctivae normal Pupils: Equal, round and reactive pupils present EOM: EOMs intact bilaterally Neck: Neck: normal visual inspection Chest: Chest palpation & inspection: normal inspection of the chest Resp: Effort & Inspection: normal respiratory effort and not labored Auscultation: clear to auscultation bilaterally and no crackles Cardio: Rate: regular rate Rhythm: regular rhythm Heart sounds: no murmurs GI: Inspection: non-distended GI Palp: Yes Soft to palpation and No Tenderness to palpation present (GI) Auscultation: bowels sounds not normal : General: Yes bladder normal to palpation Back/Spine/Pelvis: Back: no CVA tenderness Skin: General skin exam: normal color Rashes: no rashes Wounds: no wounds Neuro: General: patient oriented x3, moves all extremities and no meningeal signs Extrem: General: normal to inspection, no clubbing, cyanosis or edema and no pedal edema Other: Right knee is somewhat swollen but difficult to tell due to obesity; tenderness of the lateral collateral ligament on multiple examination types of the knee Psych: Mental Status: mental status grossly normal Affect: normal affect Attitude: cooperative Course Vital Signs Vital signs: Vital Signs Temperature 37.0 C 11/06/24 17:28 Pulse Rate 87 11/06/24 17:28 Respiratory Rate 16 11/06/24 17:28 Blood Pressure 154/128 H 11/06/24 17:28 Pulse Oximetry 96 11/06/24 17:28 Oxygen Delivery Room Air 11/06/24 17:28 Temperature 37.0 C 11/06/24 17:28 Pulse Rate 87 11/06/24 17:28 Respiratory Rate 16 11/06/24 17:28 Blood Pressure 154/128 H 11/06/24 17:28 Pulse Oximetry 96 11/06/24 17:28 Oxygen Delivery Room Air 11/06/24 17:28 MDM - Extremity Injury (Lower) MDM Narrative Medical decision making narrative: Patient is a 34-year-old female with a right knee injury prior to arrival. X- rays. Pain control. Imaging Data Attestation: I personally reviewed and interpreted this imaging study as follows: Radiologist's impression: X-ray right knee shows There is minimal irregularity the anterior tibial apophysis which is probably within normal limits. There is pain in this location MRI is suggested to evaluate for bony edema and otherwise negative for acute process Discharge Plan Discharge Clinical Impression: Derangement of right knee Patient Disposition: Home Condition: Stable Instructions: Knee Pain (ED) Additional Instructions: Please follow-up with primary doctor in the next week. I suggest an MRI of the right knee if continued pain after a week of healing process. Rest, ice, elevation and compression with Jose R bandage. Ibuprofen and Tylenol as needed. Patient Language: Wolof Prescriptions: No Action calcium carbonate 600 mg calcium (1,500 mg) tablet See Rx Instructions .ROUTE .COMPLEX Qty: 56 0RF Dose Instruction: TAKE 1 TABLET BY MOUTH DAILY FOR 8 WEEKS Rx Instructions: TAKE 1 TABLET BY MOUTH DAILY FOR 8 WEEKS oxybutynin chloride 5 mg tablet 5 mg PO BID Qty: 60 2RF hydrochlorothiazide 12.5 mg capsule 12.5 mg PO BID 30 Days Qty: 60 1RF amlodipine 5 mg tablet 5 mg PO DAILY Qty: 30 1RF trazodone 50 mg tablet See Rx Instructions .ROUTE .COMPLEX Qty: 90 1RF Dose Instruction: TAKE 1 TABLET BY MOUTH AT BEDTIME NEEDED FOR INSOMNIA Rx Instructions: TAKE 1 TABLET BY MOUTH AT BEDTIME NEEDED FOR INSOMNIA Jardiance 25 mg tablet See Rx Instructions .ROUTE .COMPLEX Qty: 90 1RF Dose Instruction: TAKE 1 TABLET BY MOUTH EVERY MORNING Rx Instructions: TAKE 1 TABLET BY MOUTH EVERY MORNING meloxicam 7.5 mg tablet See Rx Instructions .ROUTE .COMPLEX Qty: 30 1RF Dose Instruction: TAKE 1 TABLET BY MOUTH DAILY NEEDED FOR HIP PAIN Rx Instructions: TAKE 1 TABLET BY MOUTH DAILY NEEDED FOR HIP PAIN ergocalciferol (vitamin D2) 1,250 mcg (50,000 unit) capsule See Rx Instructions .ROUTE .COMPLEX Qty: 8 0RF Dose Instruction: TAKE 1 CAPSULE BY MOUTH WEEKLY FOR 8 WEEKS PLEASE FOLLOW UP FOR REPEAT LAB DRAW ONCE COMPLETE Rx Instructions: TAKE 1 CAPSULE BY MOUTH WEEKLY FOR 8 WEEKS PLEASE FOLLOW UP FOR REPEAT LAB DRAW ONCE COMPLETE losartan 100 mg tablet See Rx Instructions .ROUTE .COMPLEX Qty: 30 2RF Dose Instruction: 100 MG ORALLY DAILY Rx Instructions: 100 MG ORALLY DAILY Follow-up/Referrals: Selina Amador APRN [Primary Care Provider, Family Practice] Time of Disposition: 18:37
[2024-11-06] MEDS: ACETAMINOPHEN 500 MG TABLET 1000 MG PO (17:39)
--- OUTSIDE RECORDS SUMMARY | 2024-11-06 18:00 | XMS_ITS | Clinical Summary ---
Author Organization [facility] [employer] Address [address] [place] [address] Care Team Providers Care Diesel Mechanic Apprentice Name Role Phone Zach Paredes MD Primary Care Provider [phone] [facility] [employer],non-owned Affiliates and Associated Physician Practices is amultiple site organization consisting of ambulatory clinics and hospital sitesin [place], [place], [place] and [place]. This disclosure is being madepursuant to the Care Everywhere program and may not contain all information available regarding this patient. Last updated 17.[facility] Allergies Active Allergy Reactions Criticality Noted Date Comments Coconut Oil Urticaria Low 04/26/2015 Peanut-Derived Swelling 03/29/2015 Penicillins 03/29/2015 Never had but family members are allergic Medications * Be aware that medications may not be up to date on this document. Alwaysverify current medications with the patient. Vit-Fe Fumarate-FA ( VITAMIN) 28-0.8 MG tablet Take 1 Tab by mouth once daily Active vitamin D, ergocalciferol, (DRISDOL) 74683 UNITS capsule Take 50,000 Units by mouth every 7 days Active NIFEdipine CR 24hr (ADALAT CC) 60 MG tablet Take 1 Tab by mouth 2 times daily Take on an empty stomach. 60 Tab 4 05/09/2015 Active lanolin (LANOLIN) ointment Apply to affected area as needed (Sore or cracked nipples.) 7 g 0 05/09/2015 Active oxyCODONE-aceta minophen (PERCOCET) 5-325 MG tablet Take 1 Tab by mouth every 6 hours as needed for Pain 60 Tab 0 05/09/2015 Active ibuprofen (MOTRIN) 600 MG tablet Take 1 Tab by mouth every 6 hours as needed for Pain 60 Tab 1 05/09/2015 Active docusate sodium (COLACE) 100 MG capsule Take 1 Cap by mouth 2 times daily 60 Cap 1 05/09/2015 Active Blood Pressure Monitoring (BLOOD PRESSURE CUFF) MISC Use as needed 1 Each 0 05/14/2015 Active Active Problems Problem Noted Date Diagnosed Date examination following delive ry 05/06/2015 Hypertension in , preeclampsia, deliver ed 05/06/2015 Maternal morbid obesity, delivered, current hosp italization 05/06/2015 Preeclampsia 04/29/2015 Overview (04/29/2015): ANCS given at [facility] 04/22- 24 hr urine 19,418mg High-risk , young primigravida in third trimester 03/29/2015 Overview (05/06/2015): GBS neg Hyperthyroidism affecting 03/25/2015 Benign essential hypertension, antepartum 2015 Overview (05/09/2016): IMO Update 05/09/2016 IUGR (intrauterine growth restriction) Low amniotic fluid IUGR (intrauterine growth re striction) affecting care of mother Obesity affecting in third trimester Blurry vision Immunizations Immunization Administration Dates Next Due INFLUENZA VACCINE 05/07/2015 TDAP (7yrs+) 05/05/2015 Family History Medical History Relation Name Comments Heart Disease Father [place] Diabetes Maternal Grandfather Hypertension Maternal Grandfather Stroke Maternal Grandfather Arthritis Maternal Grandmother Multiple Sclerosis Mother Cancer Paternal Grandfather bone Kidney Disease Paternal Grandfather Diabetes Paternal Grandmother Hypertension Paternal Grandmother Relation Name Status Comments Father Maternal Grandfather Maternal Grandmother Mother Paternal Grandfather Paternal Grandmother Social History Tobacco Use Types Packs/Day Years Used Date Smoking Tobacco: Never Alcohol Use Standard Drinks/Week Comments No 0 (1 standard drink = 0.6 oz pur e alcohol) Comments No Sex and Gender Information Value Date Recorded Sex Assigned at Not on file 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 Gender Identity Not on file Sexual Orientation Not on file Last Filed Vital Signs Vital Sign Reading Time Taken Comments Blood Pressure 107/57 05/14/2015 9:20 AM CDT Pulse 114 05/09/2015 7:45 AM CDT Temperature 37.1 C (98.8 F) 05/14/2015 7:58 AM CDT Respiratory Rate 18 05/14/2015 7:58 AM CDT Oxygen Saturation 94% 05/14/2015 7:58 AM CDT Inhaled Oxygen Concentration - - Weight 139.7 kg (307 lb 14.4 oz) 05/14/2015 5:10 AM CDT Height 170.2 cm (5' 7) 05/12/2015 2:51 PM CDT Body Mass Index 48.22 05/12/2015 2:51 PM CDT Plan of Treatment Health Maintenance Due Date Last Done Comments HIV SCREENING 10/22/2003 HEPATITIS C SCREENING 10/17/2006 HEPATITIS B VACCINE (1 of 3 - 19+ 3-dose series) 10/22/2007 HPV VACCINE (1 - 3-dose SCDM series) 10/22/2015 DEPRESSION SCREENING 02/09/2024 COVID-19 VACCINE (1 - 2023-2 5 season) 2024 INFLUENZA VACCINE (#1) 2024 05/07/2015 DTAP/TDAP/TD VACCINES (2 - T d or Tdap) 05/04/2025 05/05/2015 ZOSTER VACCINE (1 of 2) 2038 HIB VACCINE Aged Out No longer eligi ble based on patient's age to complete this topic MENINGOCOCCAL (Group B) VACC INE SHARED DECISION-MAKING Aged Out No longer eligibl e based on patient's age to complete this topic MENINGOCOCCAL GROUPS A/C/Y/W VACCINE Aged Out No longer eligible b ased on patient's age to complete this topic PNEUMOCOCCAL VACCINE Aged Out No long er eligible based on patient's age to complete this topic Insurance [employer] Advance Directives * Full Code (Latest Code Status on File) Date Activated Date Inactivated Comments 05/12/2015 7:01 PM 05/14/2015 7:40 PM * Full Code Date Activated Date Inactivated Comments 05/12/2015 2:42 PM 05/12/2015 7:01 PM * Full Code Date Activated Date Inactivated Comments 05/05/2015 10:58 AM 05/09/2015 4:50 PM * Full Code Date Activated Date Inactivated Comments 05/04/2015 3:36 AM 05/05/2015 10:58 AM * Full Code Date Activated Date Inactivated Comments 04/26/2015 12:31 PM 05/04/2015 3:36 AM Care Teams Diesel Mechanic Apprentice Relationship Specialty Start Date End Date Zach Paredes MD [address], [place] [id number] PCP - General Surgery 03/29/15
--- OUTSIDE RECORDS SUMMARY | 2024-11-06 18:00 | XMS_ITS | Clinical Summary ---
Author Organization [facility] Address [address] [place] [address] Care Team Providers Care Securities Trader Name Role Phone Vargas Canolyn Familia HARLEY Primary Care Provider [phone] Allergies Active Allergy Reactions Criticality Noted Date Comments Coconut (Cocos Nucifera) Hives 06/06/2020 Penicillins Unknown 06/06/2020 Medications No known medications Social History Tobacco Use Types Packs/Day Years Used Date Smoking Tobacco: Never Assessed Comments Unknown Sex and Gender Information Value Date Recorded Sex Assigned at Not on file Legal Sex Female 4:39 AM CDT Gender Identity Not on file Sexual Orientation Not on file Last Filed Vital Signs Vital Sign Reading Time Taken Comments Blood Pressure 140/81 06/06/2020 2:46 PM CDT Pulse 82 06/06/2020 2:46 PM CDT Temperature 37.1 C (98.8 F) 06/06/2020 4:42 AM CDT Respiratory Rate 16 06/06/2020 2:46 PM CDT Oxygen Saturation 98% 06/06/2020 2:46 PM CDT Inhaled Oxygen Concentration - - Weight 148.5 kg (327 lb 6.1 oz) 06/06/2020 4:42 AM CDT Height 170.2 cm (5' 7) 06/06/2020 4:42 AM CDT Body Mass Index 51.28 06/06/2020 4:42 AM CDT Plan of Treatment Health Maintenance Due Date Last Done Comments Cervical Cancer Screening Pap Smear (Age 30 to 64) Every 3 Years 1988 Annual Physical 10/22/1991 Hepatitis C 2006 Hepatitis B Vaccines (1 of 3 - 19+ 3-dose series) 10/22/2007 HPV Vaccines (1 - 3-dose SCDM series) 10/22/2015 Cervical Cancer Screening Pap with HPV Testing (Age 30 to 64) Every 5 Years 2018 Cervical Cancer Screening with HPV 2018 COVID-19 Vaccine (3 - 2024- season) 2024 05/17/2020, 04/17/2020 DTaP, Tdap and Td Vaccines (2 - Td or Tdap) 05/04/2025 05/05/2015, 08/14/1994, 11/12/1989, Additional history exists Meningococcal B Vaccine Aged Out No l onger eligible based on patient's age to complete this topic Meningococcal Vaccine Aged Out No asif tianna eligible based on patient's age to complete this topic Pneumococcal Vaccine: Pediatrics (0 to 5 Years) and At-Risk Patients (6 to 49 Years) Aged Out No longer eligible based on patient's age to complete this topic RSV Immunizations Under 20 Months Aged Out No longer eligible based on patient's age to complete this topic Insurance Care Teams Securities Trader Relationship Specialty Start Date End Date Sandy Cano FNP PCP - General NURSE PRACTITIONER 06/06/20
[2024-11-06 18:42] VITALS: BP 157/91; PULSE 76; RESP 17; TEMP 36.7; O2SAT 100
== END 2024-11-06 18:48 | disposition home or self-care (01) ==
PROVIDERS: Emergency Provider Emergency Medicine; PCP Nurse Practitioner Family
DX: M23.91 Unspecified internal derangement of right knee (principal); W01.0XXA Fall on same level from slipping, tripping and stumbling without subsequent striking against object, initial encounter
CPT/HCPCS: 73564; 99283; A9270

== ENCOUNTER 2024-11-14 10:33 | Outpatient (CLI) | payer OTHER, SELFPAY ==
[2024-11-14 10:58] LABS: Hematocrit 37.5 % (35.0-49.0); Hemoglobin 12.5 g/dL (12.0-15.0); Immature Granulocyte Percent A 0.5 % (0.0-0.0); Lymphocytes Absolute Auto 3.03 K/mm3 (1.10-4.50); Mean Corpuscular HGB Conc 33.3 g/dL (32-36); Mean Corpuscular Hemoglobin 28.8 pg (27.0-31.0); Mean Corpuscular Volume 86.4 fL (78.0-102.0); Nucleated Red Blood Cells Absolute Auto 0.00 K/mm3 (0.00-0.00); Nucleated Red Blood Cells Perc 0.0 % (0-0.0); Platelet Count Result 294 K/mm3 (150-420); Red Blood Count 4.34 M/mm3 (4.20-5.40); White Blood Count 11.3 K/mm3 (4.8-10.8)
[2024-11-14 11:22] LABS: Alanine Aminotransferase 17 U/L (6-35); Albumin Level 4.3 g/dL (3.5-5.1); Alkaline Phosphatase 82 U/L (38-126); Anion Gap 11 mmol/L (4-12); Aspartate Amino Transferase 25 U/L (14-36); Bilirubin,Total 0.6 mg/dL (0.2-1.3); Blood Urea Nitrogen 11 mg/dL (7-17); Calcium 9.6 mg/dL (8.4-10.2); Carbon Dioxide 24 mmol/L (22-30); Chloride 106 mmol/L (98-107); Cholesterol 170 mg/dL (0-200); Estimated Glomerular Filt Rate > 60; Glucose 119 mg/dL (65-110); HDL Direct 45 mg/dL; Osmolality Calculated 292 mOsm/kg (285-295); Potassium 4.4 mmol/L (3.4-5.0); Sodium 141 mmol/L (137-145); Total Protein 9.0 g/dL (6.3-8.2); Triglycerides 215 mg/dL (<150)
--- OUTSIDE RECORDS SUMMARY | 2024-11-14 11:34 | XMS_ITS | Clinical Summary ---
Author Organization [facility] [employer] Address [address] [place] [address] Care Team Providers Care Independent Freight Agent Name Role Phone Zach Paredes MD Primary Care Provider [phone] Source Comments [facility],non-owned Affiliates and Associated Physician Practices is amultiple site organization consisting of ambulatory clinics and hospital sitesin [place], [place]. This disclosure is being madepursuant to the Care Everywhere program and may not contain all information available regarding this patient. Last updated 17.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
--- OUTSIDE RECORDS SUMMARY | 2024-11-14 11:34 | XMS_ITS | Clinical Summary ---
Author Organization [facility] Address [address] [place] [address] Care Team Providers Care Hydraulic Blocker Name Role Phone Vargas Canolyn Familia HARLEY Primary Care Provider [phone] Allergies Active Allergy Reactions Criticality Noted Date [...] (3 - 2024- season) 2024 05/17/2020, 04/17/2020 Influenza Adult (#1) 2024 05/07/2015 DTaP, Tdap and Td Vaccines (2 - [...] patient's age to complete this topic [place] [address] [place] [address] MEDICAID Care Teams Hydraulic Blocker Relationship Specialty Start Date End Date Sandy Cano FNP PCP - General NURSE PRACTITIONER 06/06/20
[2024-11-14 11:48] LABS: Hemoglobin A1C 6.4 % (<5.7)
[2024-11-14 11:52] LABS: Thyroid Stimulating Hormone Reflex 4.130 uIU/mL (0.465-4.68)
[2024-11-14 12:31] LABS: Free T4 Free Thyroxine Reflex 0.97 ng/dL (0.78-2.19)
== END 2024-11-14 10:34 | disposition home or self-care (01) ==
LOC: CHSLAB 10:35
PROVIDERS: PCP Nurse Practitioner Family; Visit Provider Nurse Practitioner Family
DX: Z00.00 Encounter for general adult medical examination without abnormal findings (principal); E55.9 Vitamin D deficiency, unspecified
CPT/HCPCS: 36415; 80053; 80061; 82306; 83036; 84439; 84443; 85025

== ENCOUNTER 2024-11-14 13:14 | Outpatient (CLI) | payer OTHER, SELFPAY ==
--- NOTE | ~2024-11-14 | MR_ITS ---
EXAMINATION: MR knee RT wo con DATE: 11/14/2024 13:53 INDICATION: Right knee instability TECHNIQUE: Magnetic resonance imaging (MRI) of the right knee was performed without intravenous contrast. Sequences included coronal PD-weighted FSE, coronal PD-weighted FS FSE, sagittal T2-weighted FSE, sagittal PD-weighted FS FSE and axial PD weighted fat saturated FSE. COMPARISON: None. FINDINGS: Medial compartment: Medial meniscus is normal. Articular cartilage is normal. Lateral compartment: Lateral meniscus is normal. Articular cartilage is normal. Patellofemoral compartment: Chondral swelling and partial-thickness fissuring without degenerative subchondral changes at the central aspect of the patellar apical ridge and lateral facet. Trochlear cartilage is normal. Ligaments and tendons: Anterior and posterior cruciate ligaments are normal. The medial collateral ligament and fibular collateral ligament complex are normal. The extensor mechanism is normal. The visualized medial and lateral hamstring tendons as well as the iliotibial band are normal. Fluid: Physiologic amount of fluid in the joint space. No loose osteochondral bodies identified. Osseous/other: Small patchy regions of red marrow reexpansion in the metadiaphyseal region of the distal femur and proximal tibia. No fracture or pathologic marrow replacing process. IMPRESSION: 1. 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 Reviewed, dictated and finalized at location A. IMPRESSION: 1. Mild patellofemoral osteoarthritis with small region of low to moderate grad e chondromalacia patellar chondromalacia.
== END 2024-11-14 13:15 | disposition home or self-care (01) ==
LOC: MICIMG 13:15
PROVIDERS: PCP Nurse Practitioner Family; Visit Provider Nurse Practitioner Family
DX: M25.361 Other instability, right knee (principal); M25.461 Effusion, right knee; M17.11 Unilateral primary osteoarthritis, right knee
CPT/HCPCS: 73721

== ENCOUNTER 2025-01-10 08:26 | Outpatient (CLI) | payer OTHER, SELFPAY ==
--- OUTSIDE RECORDS SUMMARY | 2025-01-10 08:50 | XMS_ITS | Clinical Summary ---
Author Organization [facility] Address [address] [place] [address] Care Team Providers Care Informatics Educator Name Role Phone Vargas Canolyn Familia HARLEY Primary Care Provider [phone] Allergies Active Allergy Reactions Criticality Noted Date [...] 05/04/2025 05/05/2015, 08/14/1994, 11/12/1989, Additional history exists Hepatitis A Vaccines Aged Out No long er eligible based on patient's age to complete this topic Meningococcal B Vaccine Aged Out No l [...] patient's age to complete this topic Insurance [employer] MEDICAID Care Teams Informatics Educator Relationship Specialty Start Date End Date Sandy Cano FNP PCP - General NURSE PRACTITIONER 06/06/20
--- OUTSIDE RECORDS SUMMARY | 2025-01-10 08:50 | XMS_ITS | Clinical Summary ---
Author Organization [facility] [employer] Address [address] [place] [address] Care Team Providers Care Business Management Professor Name Role Phone Zach Paredes MD Primary Care Provider [phone] Source Comments [facility] [employer],non-owned Affiliates and Associated Physician Practices is amultiple site organization consisting of ambulatory clinics and hospital sitesin [place], [place], [place] and [place]. This disclosure is being madepursuant to the Care Everywhere program and may not contain all information available regarding this patient. 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 Gender Identity Not on file Sexual Orientation Not on file Last Filed Vital Signs Vital Sign Reading Time Taken Comments Blood Pressure 107/57 05/14/2015 9:20 AM CDT Pulse 114 05/09/2015 7:45 AM CDT Temperature 37.1 C (98.8 F) 05/14/2015 7:58 AM CDT Respiratory Rate 18 05/14/2015 7:5 8 AM CDT Oxygen Saturation 94% 05/14/2015 7:58 [...] DEPRESSION SCREENING 02/09/2024 COVID-19 VACCINE (1 - 2024-2 6 season) 2024 INFLUENZA VACCINE (#1) 2024 05/07/2015 [...] 12:31 PM 05/04/2015 3:36 AM Care Teams Business Management Professor Relationship Specialty Start Date End Date Zach Paredes MD [address], [place] [id number] PCP - General Surgery 03/29/15
[2025-01-10 09:03] LABS: Hematocrit 37.3 % (35.0-49.0); Hemoglobin 12.4 g/dL (12.0-15.0); Immature Granulocyte Percent A 0.3 % (0.0-0.0); Lymphocytes Absolute Auto 3.03 K/mm3 (1.10-4.50); Mean Corpuscular HGB Conc 33.2 g/dL (32-36); Mean Corpuscular Hemoglobin 28.3 pg (27.0-31.0); Mean Corpuscular Volume 85.2 fL (78.0-102.0); Nucleated Red Blood Cells Absolute Auto 0.00 K/mm3 (0.00-0.00); Nucleated Red Blood Cells Perc 0.0 % (0-0.0); Platelet Count Result 295 K/mm3 (150-420); Red Blood Count 4.38 M/mm3 (4.20-5.40); White Blood Count 11.5 K/mm3 (4.8-10.8)
[2025-01-10 09:21] LABS: Alanine Aminotransferase 19 U/L (6-35); Albumin Level 4.4 g/dL (3.5-5.1); Alkaline Phosphatase 89 U/L (38-126); Anion Gap 14 mmol/L (4-12); Aspartate Amino Transferase 23 U/L (14-36); Bilirubin,Total 0.3 mg/dL (0.2-1.3); Blood Urea Nitrogen 9 mg/dL (7-17); Calcium 9.2 mg/dL (8.4-10.2); Carbon Dioxide 21 mmol/L (22-30); Chloride 105 mmol/L (98-107); Estimated Glomerular Filt Rate > 60; Glucose 120 mg/dL (65-110); Osmolality Calculated 289 mOsm/kg (285-295); Potassium 4.1 mmol/L (3.4-5.0); Sodium 140 mmol/L (137-145); Total Protein 7.8 g/dL (6.3-8.2)
[2025-01-10 09:40] LABS: Free T4 Free Thyroxine 1.12 ng/dL (0.78-2.19)
[2025-01-10 09:52] LABS: Thyroid Stimulating Hormone 4.090 uIU/mL (0.465-4.680)
[2025-01-10 10:51] LABS: Hemoglobin A1C 5.9 % (<5.7)
== END 2025-01-10 08:27 | disposition home or self-care (01) ==
PROVIDERS: PCP Nurse Practitioner Family; Visit Provider Nurse Practitioner Family
DX: E55.9 Vitamin D deficiency, unspecified (principal); Z68.43 Body mass index [BMI] 50.0-59.9, adult; D72.829 Elevated white blood cell count, unspecified; R73.03 Prediabetes; Z83.49 Family history of other endocrine, nutritional and metabolic diseases
CPT/HCPCS: 36415; 80053; 82306; 82533; 83036; 84439; 84443; 85025; 86376

== ENCOUNTER 2025-01-12 08:15 | Outpatient (CLI) | payer OTHER, SELFPAY ==
--- NOTE | ~2025-01-12 | US_ITS ---
US thyroid INDICATION: Dysphonia TECHNIQUE: Real-time sonographic images of the thyroid gland were obtained. COMPARISON: No prior studies for comparison. FINDINGS: The right thyroid lobe measures 4.7 x 1.4 x 1.6 cm. The left thyroid lobe measures 4.3 x 1.5 x 1.4 cm. There is normal echotexture and echogenicity throughout the thyroid gland. No discrete nodules identified. Normal vascular flow is present. IMPRESSION: 1. Normal thyroid without discrete nodule or abnormal vascularity. Reviewed, dictated and finalized at location I. MACEUTICAL SALESPERSON
== END 2025-01-12 08:16 | disposition home or self-care (01) ==
LOC: CHSIMG 08:19
PROVIDERS: PCP Nurse Practitioner Family; Visit Provider Nurse Practitioner Family
DX: R49.0 Dysphonia (principal)
CPT/HCPCS: 76536